=== PATIENT | female | born 1975 ===

== ENCOUNTER 2021-10-26 06:15 | Day surgery (SDC) | payer OTHER ==
[~2021-10-26] VITALS: Ht 160 cm; Wt 79.4 kg
[~2021-10-26 06:15] MED LIST: COZAAR50 MG PO
[2021-10-26] MEDS ORDERED: PERCOCET 5-3251 EACH PO (09:29)
== END 2021-10-26 11:25 | disposition home or self-care (01) ==
LOC: CIR.AMB 06:15
PROVIDERS: ATTEND Surgery
DX: D35.1 Benign neoplasm of parathyroid gland (principal); I10 Essential (primary) hypertension; Z86.16 Personal history of COVID-19; G43.909 Migraine, unspecified, not intractable, without status migrainosus; E66.9 Obesity, unspecified; Z20.822 Contact with and (suspected) exposure to COVID-19; E21.0 Primary hyperparathyroidism